=== PATIENT | female | born 1980 | race Caucasian/White ===

== ENCOUNTER 2018-11-23 09:57 | Day surgery (SDC) | payer BC ==
[2018-11-20 15:56] LABS: Absolute Lymphocytes (CBC) 1.5 K/uL (0.7-4.9); Basophils % 0.4 % (0-1.3); Eosinophils % 1.4 % (0-4.4); Hematocrit 41.7 % (36.0-45.0); Lymphocytes % 27.8 % (15.3-44.8); MPV 9.2 fL (7.6-11.3); Monocytes % 9.2 % (3.3-12.3); RBC Red Blood Cell Count 4.58 M/uL (3.86-4.86)
[2018-11-20 16:00] LABS: Urine Appearance CLEAR; Urine Bilirubin NEGATIVE (NEG); Urine Blood 1+ (NEG); Urine Color YELLOW; Urine Glucose NEGATIVE (NEG); Urine Protein NEGATIVE (NEG); Urine Specific Gravity <=1.005 (1.005-1.030); Urine Urobilinogen 0.2 mg/dL (0.2-1.0)
[2018-11-20 16:10] LABS: Urine Microscopic Reflex ORDER UMIC
[2018-11-20 16:29] LABS: Urine Bacteria <20 /HPF (<20); Urine Culture Reflex Order NOT NEEDED; Urine RBC NONE SEEN /HPF (NONE SEEN)
[2018-11-23 10:21] LABS: Specific Gravity > 1.030 (1.005-1.030)
[2018-11-23] MEDS ORDERED: Ringers Lactate 1,000 ML IV ONE ×3 (10:39→15:44)
[2018-11-23] MEDS ORDERED: SCOPOLAMINE HYDROBROMIDE PATCH TD ONE (10:39)
[2018-11-23] MEDS ORDERED: PROPOFOL 200 MG/20 ML VIAL IV ONE (12:39)
[2018-11-23] MEDS ORDERED: FENTANYL CITR 250 MCG/5 ML ONE (12:39)
[2018-11-23] MEDS ORDERED: MIDAZOLAM HCL 2 MG/2 ML INJ ONE (12:39)
[2018-11-23] MEDS ORDERED: ONDANSETRON 4 MG/2 ML VIAL ONE (12:39)
[2018-11-23] MEDS ORDERED: ROCURONIUM 50 MG/5 ML VIAL IV ONE (12:39)
[2018-11-23] MEDS ORDERED: LIDOCAINE 2% MPF 5 ML VIAL ONE (12:39)
[2018-11-23] MEDS ORDERED: dexAMETHasone 10 MG/ML VIAL ONE (12:39)
[2018-11-23] MEDS: CEFAZOLIN/SWI 2gm 2 GM/20 ML SYR ONE ×2 (12:56→13:05)
[2018-11-23] MEDS ORDERED: KETOROLAC 30 MG/ML INJ ONE (14:59)
[2018-11-23] MEDS ORDERED: GLYCOPYRROLATE 0.2 MG/ML SYR ONE (15:43)
[2018-11-23] MEDS ORDERED: NEOSTIGMINE 1 MG/ML -10 ML VIAL ONE (15:43)
[2018-11-23] MEDS: HYDROMORPHONE HCL 1 MG/ML INJ ONE ×2 (16:01→16:06)
[2018-11-23] MEDS ORDERED: PROMETHAZINE 25 MG/ML VIAL ONE (16:20)
[2018-11-23] MEDS ORDERED: HYDROCODONE/APAP 5/325 MG TAB ONE (17:39)
--- NOTE | 2018-11-24 08:21 | OP ---
Date of Procedure: 11/23/2018 Surgeon: Emilie Chew MD Lpn Per Diem: Nina Vicente. Preoperative Diagnoses: Recurrent heavy menstrual bleeding, leiomyomata/adenomyosis for endometriosi s, dysmenorrhea and dyspareunia. Postoperative Diagnoses: Recurrent heavy menstrual bleeding, leiomyomata/adenomyosis for endometrios is, dysmenorrhea and dyspareunia, endometriosis and lower uterine support at level 1, bilateral hydro salpinges, (postablation tubal ligation syndrome). Procedures Performed: Total laparoscopic hysterectomy, bilateral salpingectomy, uterosacral ligament suspension, colpopexy, endometriosis excision, and cystoscopy, glidewire placement on bot h sides. Estimated Blood Loss: Less than 50. Specimens: Uterus, bilateral tubes. Findings: Bilateral were noted most likely consistent with her ablation history, endometr iosis in the anterior cul-de-sac, which was excised and included with the serosal specimen of the [place] stormy. Then, level 1 defect noted and distal uterosacrals were both plicated together and attached to the posterior and anterior vaginal wall about 1 cm distal to the proximal end. Both ovaries appeared to be normal. Both distal part of the tube appeared to be normal and unremarka ble and there was scar tissue at the suprapubic area and near the bladder flap due to the prior C-sec tion. Patient is a 38-year-old referred to me by Dr. Figueroa after having . She was treated wi th an ablation and her bleeding has recurred as well as her pain, now she has severe dyspareunia and deep dyspareunia as well, becoming dysfunctional. All the other options including depo-medroxyproges terone acetate, Lupron, and GnRH antagonist therapy were all discussed with the patient. She decline d. She wanted to have surgical management and she was tired of the pain and was unable to continue t o have intercourse with her . She had no more fertility desires, so her tubes have been tied in the past. So after ultrasound was performed, no other abnormality was noted. She was biopsied prior to the abl ation. So, after reviewing her ultrasound plan to perform hysterectomy, bilateral salpingectomy, and any other procedures needed since there was caesarians. I would deal with the bladder if there are adhesions and cystoscopy as needed. Description Of Procedure: After informed consent was verified, patient was taken back to OR, placed in a supine fashion on the operating table. 2 g of Ancef were given prior to the procedure. The onl y allergy was penicillin anaphylaxis. After patient was placed in a supine fashion, general anesthesia was given, she was placed in a dorsa l lithotomy position using Bob stirrups. Pelvic exam performed, uterus anteflexed and slightly enl arged. No adnexal masses were seen. Abdomen, vulva, vagina, and perineum were prepped and draped in a sterile fashion. Barakat was placed to drain the bladder and VCare was introduced into the uterus a fter having to dilate the cervix up to 16-Gibraltarian and the VCare was inserted and fixed in place. Firs t retrograde filling bladder with Barakat was attached to the cysto-tubing to LR bag, emptied 300 from a 1000 for retrograde filling, this was just placed on the floor after draining the bladder to measur e the urinary output. 1 cm infraumbilical incision was made with a scalpel. Fascia incised and tagg ed with 0 Vicryl suture. Upper abdominal cavity, liver, gallbladder are unremarkable. There was sli ght adhesions of the ascending colon at the junction to the transverse colon in the right upper quadrant, but there were no other abnormality seen. Patient was placed in and then 10 mm suprapubic, 5 mm left lower quadrants were placed und er direct vision, then after visualizing all the courses of the ureters on both sides, which were und istorted the endometriosis in the anterior cul-de-sac, this was to be excised and the spec imen on the uterus. A 5 mm LigaSure was taken using laparoscopic scissors. Anterior bladder flap was raised all the way from 1 round ligament to the other. Hemostasis was secured as needed. Then, the mesosalpinx was ope juanjose up on the left side, after a window was made for the round ligament. This was taken down with th e LigaSure. Then, tube from the proximal part was all dissected so it could be included with the spe cimen. Then posterior flap was raised, but there was easy access all the way to the uterosacral liga ment on the left side. The broad ligament was skeletonized. Vessels were visualized on the opposite side, similar dissection was performed, taking down the uteroovarian ligament, mesosalpinx, tube, an d the proximal tube and the vessels were skeletonized in the usual fashion. Monopolar hook blade was used to create a nice bladder flap and bladder was dissected inferiorly at least 2 cm. Then, the Elizabeth Lo was used to take down the vessels on both sides and cardinal ligaments on both sides, circumfe rential colpotomy with a monopolar hook blade. Thorough irrigation and suction were performed. The vaginal closure was performed with 2 simple sutures at both ends and 3 xepqzbt-vo-fglrzi in the middl e and tied intracorporeally. Then the uterine became more obvious and at this point decid ed to perform an uterosacral suspension, which included taking the left uterosacral with a PDS at the distal 1/5 and attaching it to the posterior vaginal wall and passed the opposite contralateral to t he uterosacral and then to the anterior abdominal wall and this was tied down. There was excellent s upport at the apex and the plan was to do a cystoscopy. After thorough irrigation and suction were performed, the distal part of the tubes were also removed from the ovarian origin and they were handed off for permanent pathology. On removing the anterior c ul-de-sac, endometriosis cyst was excised sharply with scissors on the peritoneal side of the bladder and then the rest of it was excised and left with the specimen hanging. After the specimen was retrieved through the vagina thorough irrigation and suction were performed. Closure done with simple 0 Vicryl stitches on both sides and 3 hxsiaos-qj-tokywv in the middle for th e vaginal closure and then uterosacral suspension from distal left uterosacral, posterior vaginal wal l, right uterosacral anterior vaginal wall and then tied down together. Trocars were removed and gas was desufflated. Incisions at the umbilicus were closed with a 0 Vicryl in a mwhqox-ja-nfahu fashio n and a simple 0 Vicryl stitch at the suprapubic area. All skin incisions with 4 Vicryl interrupted sutures. Vaginally, I was able to remove the sponge stuck in glove for occluding the vagina out, the re was also a Barakat which had to be removed out. Once this was all done, the scope was placed ____ sheath, 30 degree lens, normal saline scope was placed into the bladder to visualize no evidence of any abnormalities. Both the ureteric orifices had gentle streams of urine, but the patient appea red to be dehydrated, her urine appeared to be concentrated. Passed the glidewire just to make sure there was no kink and there was no difficulty in passing it. The glidewire was pulled back and then the bladder was drained. Patient was recovered from anesthesia and instrument and sponge counts were correct at the end of the case. She tolerated the procedure well. She will follow up with me in 1 week. TEJAS Voice ID: [id number] Report ID: [id number]
== END 2018-11-23 18:10 | disposition home or self-care (01) ==
LOC: OR 09:57
PROVIDERS: ATTEND Obstetrics & Gynecology
PROC: 0UT74ZZ Resection of Bilateral Fallopian Tubes, Percutaneous Endoscopic Approach (ICD-10-PCS; 2018-11-23)
PROC: 0UBF4ZZ Excision of Cul-de-sac, Percutaneous Endoscopic Approach (ICD-10-PCS; 2018-11-23)
PROC: 0USG7ZZ Reposition Vagina, Via Natural or Artificial Opening (ICD-10-PCS; 2018-11-23)
PROC: 0UT94ZZ Resection of Uterus, Percutaneous Endoscopic Approach (ICD-10-PCS; principal; 2018-11-23 12:00)
DX: N72 Inflammatory disease of cervix uteri (principal); N83.6 Hematosalpinx; N70.11 Chronic salpingitis; N83.8 Other noninflammatory disorders of ovary, fallopian tube and broad ligament; N92.1 Excessive and frequent menstruation with irregular cycle; N94.6 Dysmenorrhea, unspecified; N94.12 Deep dyspareunia; N80.3 Endometriosis of pelvic peritoneum
CPT/HCPCS: 36415; 81003; 81015; 81025; 85025; 86850; 86900; 86901; 88307; J0690; J1100; J1170; J2250; J2405; J2550; J2704; J2710; J3010

== ENCOUNTER 2023-03-14 11:47 | Emergency (ER) | payer OTHER ==
--- OUTSIDE RECORDS SUMMARY | 2023-03-14 11:50 | XMS REPORT | Continuity of Care Document ---
:1980 Author Organization [facility] t Address [address] [place] [address] Care Team Providers Name Role Phone Bishnu PETERSON, Lillian Fiore Primary Care Physician [phone] SYLVIE_DONNA_Alfredo_Aydin Attending Clinician Unavailable LILLIAN SOLORIO Attending Clinician Unavailable Korey Fuentes Attending Clinician [phone] Vishal Connell DO Attending Clinician SYLVIE_DONNA_Alfredo_Aydin Admitting Clinician Unavailable Payers Payer Name Policy Type Policy Number Effective Date Expiration Date [facility] [id number] 2022 PLANS - OPEN 00:00:00 ACCESS 90 DEGREE BENEFITS [id number] 2022 00:00:00 AETNA-90 DEGREE 2 [id number] 2022 BENEFITS 00:00:00 [place] [id number] 2021 [place] (PPO) 00:00:00 Problems Condition Condition Condition Status Onset Resolution Last Treating Co mments Source Name Details Category Date Date Treatment Clinician Date Psoriasis Psoriasis Disease Active Checo sey 2-16 Seybold 00:00: - 00 Externa l Right Right Disease Active Eunice non-suppur non-suppur 2-16 Se ybold ative ative 00:00: - otitis otitis 00 Externa media media l Peggy' Peggy' Disease Active Matilde hutchisoncleo s disease s disease 2-16 Seyb old 00:00: - 00 Externa l Psoriasis Psoriasis Problem Active Shy via 30 Medical 00:00: 00 Allergies, Adverse Reactions, Alerts Allergy Allergy Status Severity Reaction(s) Onset Inactive Treating Comm ents Source Name Type Date Date Clinician Penicill Propensi Active Rash Eunice ins ty to 30 Seybold adverse 00:00: reaction 00 s Penicill Propensi Active Rash Eunice ins ty to 30 Seybold adverse 00:00: - reaction 00 Externa s l PENICILL Allergy Active Hives [facility] INS to Medical substanc e Social History Social Habit Start Date Stop Date Quantity Comments Source Exposure to Not sure Eunice Seybol d SARS-CoV-2 (event) Tobacco use and 2020-11-12 2020-11-12 Smokeless tobacco Ke lsey Seybold - exposure 00:00:00 00:00:00 non-user External Sex Ass[birth year] At [birth year] Eunice Se ybold - 00:00:00 00:00:00 External Smoking Status Start Date Stop Date Source Never smoked tobacco Eunice Seyb old - External Medications Ordered Filled Start Stop Current Ordering Indication Dosage Frequency Signature Comments Components Source Medication Medication Date Date Medication? Clinician (SIG) Name Name Levothyroxi 2021-05 Yes levothyrox Eunice ne Sodium 2-21 ine 25 mcg Seyb old 25 MCG oral 10:39: tablet - Tablet 55 TAKE 1 Externa TABLET BY l MOUTH EVERY DAY IN THE MORNING ON AN EMPTY STOMACH Metronidazo 2021-05 Yes metronidaz Eunice le 500 MG 2-21 ole 500 mg Seyb old oral Tablet 10:39: tablet - 55 TAKE 1 Externa TABLET BY l MOUTH THREE TIMES DAILY FOR 14 DAYS Saccharomyc 2021-05 Yes Florastor Matilde rosario es 2-21 250 mg Seybold boulardii 10:39: capsule - 250 MG oral 55 TAKE 1 Inside Meter Tester a Capsule CAPSULE BY l MOUTH DAILY Oseltamivir 2021-05- No [id number] 75mg Take 1 Eunice Phosphate 2-21 12-27 capsule Seybol d 75 MG oral 00:00: 05:59 (75 mg - Capsule 00 :00 total) by Externa mouth 2 l times daily for 5 days Ipratropium Yes 2{spray 2 sprays Eunice [place] 5-02 } Seybold 0.06 % 00:00: - nasal 00 Externa Solution l Azithromyci 2021- No [id number] Take 2 Eunice n 250 MG 2-16 -22 tablets by Seyb old oral Tablet 00:00: 05:59 mouth on 00 :00 day 1 then 1 tablet by mouth daily for 4 days thereafter . Omeprazole Yes TAKE 1 Kelse y 20 MG oral -31 CAPSULE BY Sey bold Delayed 00:00: MOUTH Release 00 EVERY Capsule MORNING IN THE MORNING Omeprazole 2021- No TAKE 1 Corinne ey 20 MG oral 06-08- CAPSULE BY Se ybold Delayed 00:00: 00:00 MOUTH - Release 00 :00 EVERY Externa Capsule MORNING IN l THE MORNING NALTREXONE Yes Eunice HCL OR 1-17 Seybold 00:00: 00 NALTREXONE Yes Eunice HCL OR 1-17 Seybold 00:00: - 00 Externa l ACADEMIC INTERVENTIONIST Thyroid ACADEMIC INTERVENTIONIST Thyroid No 1 Q1D ACADEMIC INTERVENTIONIST Thyroid [facility] 60 mg 60 mg 1-10 60 mg Medical tablet 1 tablet 1 00:00: tablet 1 tablet tablet 00 tablet every day every day every day by oral by oral by oral route. route. route. Thyroid (ACADEMIC INTERVENTIONIST Yes Eunice Thyroid) 60 1-10 Seybold MG oral 00:00: Tablet 00 Thyroid (ACADEMIC INTERVENTIONIST 0 Yes Eunice Thyroid) 60 1-10 Seybold MG oral 00:00: - Tablet 00 Externa l naltrexone naltrexone No naltrexone [facility] 1-01 Medical 00:00: 00 Famotidine 2020-05 Yes Eunice (PEPCID) 20 2-06 Seybold MG oral 00:00: tablet 00 Famotidine 2020-05- No Eunice (PEPCID) 20 2-06 12-21 Seybold MG oral 00:00: 00:00 - tablet 00 :00 Externa l Tremfya 100 Yes 1mg Inject 1 Ke lsey MG/ML 5-12 mg into Seybold subcutaneou 00:00: the skin s Solution 00 Q60 Days Prefilled Syringe Tremfya 100 Yes 1mg Inject 1 Ke lsey MG/ML 5-12 mg into Seybold subcutaneou 00:00: the skin - s Solution 00 Q60 Days Exter na Prefilled l Syringe azithromyci azithromyci No azithromyc [facility] n 250 mg n 250 mg in 250 mg Me dical tablet TAKE tablet TAKE tablet 2 TABLETS 2 TABLETS TAKE 2 BY MOUTH BY MOUTH TABLETS BY FOR 1 DAY FOR 1 DAY MOUTH FOR THEN TAKE 1 THEN TAKE 1 1 DAY THEN TABLET BY TABLET BY TAKE 1 MOUTH DAILY MOUTH DAILY TABLET BY FOR 4 DAYS FOR 4 DAYS MOUTH THEREAFTER THEREAFTER DAILY FOR 4 DAYS THEREAFTER famotidine famotidine No famotidine [facility] 20 mg 20 mg 20 mg Medical tablet TAKE tablet TAKE tablet 1 TABLET BY 1 TABLET BY TAKE 1 MOUTH EVERY MOUTH EVERY TABLET BY NIGHT AT NIGHT AT MOUTH BEDTIME BEDTIME EVERY NIGHT AT BEDTIME Florastor Florastor No Florastor [facility] 250 mg 250 mg 250 mg Medical capsule capsule capsule TAKE 1 TAKE 1 TAKE 1 CAPSULE BY CAPSULE BY CAPSULE BY MOUTH DAILY MOUTH DAILY MOUTH DAILY ipratropium ipratropium No ipratropiu [facility] bromide 42 bromide 42 m bromide Medical mcg (0.06 mcg (0.06 42 mcg %) nasal %) nasal (0.06 %) spray USE 2 spray USE 2 nasal SPRAYS IN SPRAYS IN spray USE EACH EACH 2 SPRAYS NOSTRIL NOSTRIL IN EACH THREE TIMES THREE TIMES NOSTRIL DAILY DAILY THREE NEEDED NEEDED TIMES DAILY NEEDED levothyroxi levothyroxi No levothyrox [facility] ne 25 mcg ne 25 mcg ine 25 mcg Medical tablet TAKE tablet TAKE tablet 1 TABLET BY 1 TABLET BY TAKE 1 MOUTH EVERY MOUTH EVERY TABLET BY DAY IN THE DAY IN THE MOUTH MORNING ON MORNING ON EVERY DAY AN EMPTY AN EMPTY IN THE STOMACH STOMACH MORNING ON AN EMPTY STOMACH metronidazo metronidazo No metronidaz [facility] le 500 mg le 500 mg ole 500 mg Medical tablet TAKE tablet TAKE tablet 1 TABLET BY 1 TABLET BY TAKE 1 MOUTH THREE MOUTH THREE TABLET BY TIMES DAILY TIMES DAILY MOUTH FOR 14 DAYS FOR 14 DAYS THREE TIMES DAILY FOR 14 DAYS multivitami multivitami No multivitam [facility] n n in Medical ACADEMIC INTERVENTIONIST Thyroid ACADEMIC INTERVENTIONIST Thyroid No ACADEMIC INTERVENTIONIST Thyroid [facility] 30 mg 30 mg 30 mg Medical tablet TAKE tablet TAKE tablet 2 TABLETS 2 TABLETS TAKE 2 BY MOUTH BY MOUTH TABLETS BY EVERY DAY EVERY DAY MOUTH ON AN EMPTY ON AN EMPTY EVERY DAY STOMACH STOMACH ON AN EMPTY STOMACH NuLev 0.125 NuLev 0.125 No NuLev [facility] mg mg 0.125 mg Medical disintegrat disintegrat disintegra ing tablet ing tablet ting DISSOLVE 1 DISSOLVE 1 tablet TO 2 TO 2 DISSOLVE 1 TABLETS ON TABLETS ON TO 2 THE TONGUE THE TONGUE TABLETS ON EVERY 4 TO EVERY 4 TO THE TONGUE 6 HOURS 6 HOURS EVERY 4 TO NEEDED NEEDED 6 HOURS NEEDED omeprazole omeprazole No omeprazole [facility] 20 mg 20 mg 20 mg Medical capsule,del capsule,del capsule,de ayed ayed layed release release release TAKE 1 TAKE 1 TAKE 1 CAPSULE BY CAPSULE BY CAPSULE BY MOUTH EVERY MOUTH EVERY MOUTH MORNING IN MORNING IN EVERY THE MORNING THE MORNING MORNING IN THE MORNING Tremfya 100 Tremfya 100 No Tremfya [facility] mg/mL mg/mL 100 mg/mL Medical subcutaneou subcutaneou subcutaneo s syringe s syringe us syringe Vital Signs Vital Name Observation Time Observation Value Comments Source Systolic blood 2022-04-28 16:36:00 98 mm[Hg] Eunice Natarajanold - pressure External Diastolic blood 2022-04-28 16:36:00 72 mm[Hg] Sherry Mckeon - pressure External Heart rate 2022-04-28 16:36:00 88 /min Eunice montero - External Body temperature 2022-04-28 16:36:00 36.28 Ju Corinne cervantes Seybold - External Respiratory rate 2022-04-28 16:36:00 14 /min Corinne Mckeon - External Body height 2022-04-28 16:36:00 167.6 cm Eunice montero - External Body weight 2022-04-28 16:36:00 71.668 kg Eunice montero - External BMI 2022-04-28 16:36:00 25.50 kg/m2 Eunice montero - External BP Diastolic 2021-11-18 00:00:00 77 mm[Hg] Carola Bertrand edical Height 2021-11-18 00:00:00 66 [in_i] Carola Bertrand edical BMI (Body Mass Index) 2021-11-18 00:00:00 24.9 kg/m2 [facility] BP Systolic 2021-11-18 00:00:00 111 mm[Hg] Carola del angel Body Weight 2021-11-18 00:00:00 154 [lb_av] Carola Bertrand edical Systolic blood 2021-06-24 16:45:00 110 mm[Hg] Eunice Seybold pressure Diastolic blood 2021-06-24 16:45:00 72 mm[Hg] Checose y Seybold pressure Heart rate 2021-06-24 16:45:00 85 /min Eunice cervantesbodelano Body temperature 2021-06-24 16:45:00 36.67 Ju Corinne ey Seybold Respiratory rate 2021-06-24 16:45:00 14 /min Corinne cervantes Seybold Body height 2021-06-24 16:45:00 167.6 cm Eunice cervantesbodelano Body weight 2021-06-24 16:45:00 73.483 kg Eunice cervantesbodelano BMI 2021-06-24 16:45:00 26.15 kg/m2 Eunice cervantesdean Procedures Procedure Date / Time Performed Performing Clinician Sour e LS RAPID STREP ASSAY-LAB 2022-04-28 16:56:00 Lillian Solorio Seybold - TEST Somogyi External LS RAPID FLU ASSAY-LAB 2022-04-28 16:56:00 Lillian Solorio Seybold - TEST Somogyi External MAMMO, screening, 2021-11-18 00:00:00 [facility] bilateral Hysterectomy 2018-05-09 00:00:00 [facility] Operative Procedure on [facility] dical Knee Caesarean Section [facility] Endometrial Ablation [facility] Plan of Care Planned Activity Planned Date Details Comments Source Diagnostic Test 2021-11-18 00:00:00 [place] IgE Ab P [facility] Pending [Units/volume] in Serum [code = 6195-2] Encounters Start End Encounter Admission Attending Care Care Encounter Source Date/Time Date/Time Type Type Clinicians Facility Department ID 2022-11-17 2022-11-17 Outpatient GC_SWHAOMC_ PRIV PRIV [id number] [facility] 00:00:00 00:00:00 Judy [id number] Medic al 2022-11-17 2022-11-17 Outpatient GC_SWHAOMC_ PRIV PRIV [id number] [facility] 00:00:00 00:00:00 Judy [id number] Medic al 2022-10-10 2022-10-10 Outpatient GC_SWMARCUSOMC_ PRIV PRIV [id number] [facility] 00:00:00 00:00:00 Judy [id number] Medic al 2022-04-28 2022-04-28 Outpatient EUNICE SOLORIO [id number] Eunice 10:30:00 10:30:00 LILLIAN Seybol d 2022-04-28 2022-04-28 Outpatient EUNICE SOLORIO [id number] Eunice 09:45:00 09:45:00 LILLIAN Seybol d 2021-11-18 2021-11-18 Outpatient GC_SWMARCUSOMC_ PRIV PRIV [id number] [facility] 01:14:00 01:14:00 Judy [id number] Medic al 2021-11-18 2021-11-18 Outpatient Alfredo, PRIV PRIV [id number] 00:00:00 00:00:00 Korey [id number] [place] [id number] 2021-11-18 2021-11-18 Korey [facility] 13 [facility] 00:00:00 00:00:00 [facility] Medic il SYLVIE Fuentes_DONNA_ : [address], [place] [address] , Ph. 2021-11-17 2021-11-17 Outpatient GC_MOHITOMC_ PRIV PRIV [id number] [facility] 12:43:00 12:43:00 Judy [id number] Medic al 2021-06-24 2021-06-24 Office Hoang Connell [id number] Eunice 11:00:00 11:30:00 Visit Vishal Gupta [id number] Se sesay [id number] Results Test Description Test Time Test Comments Results Result Sour e Comments SCR MAMM 2022-02-17 BILATERAL SKY 10:10:26 CAD DIGITAL Name: Cassandra DOB: 1980 Sex: F - SCR MAMM BILATERAL SKY CAD DIGITALBILATERAL DIGITAL SCREENING MAMMOGRAM 3D/2D WITH CAD: 02/15/2022LINICAL: Asymptomatic. Digital breast tomosynthesis was performed in addition to routine CC and MLO views. Current mammographic images were evaluated by [employer] ImageChecker CAD (computer-aided detection) software. Comparison is made to exams dated 02/09/2021 mammogram, 06/10/2017 mammogram, and 05/11/2016 mammogram - [facility]. The tissue of both breasts is heterogeneously dense. This may lower the sensitivity of mammography. There are benign calcifications in both breasts. No suspicious mass, architectural distortion, malignant type calcification, or lymph node abnormality detected. Breast architecture is stable compared to prior exams.IMPRESSION: BENIGNThere is no mammographic evidence of malignancy. Resume annual screening mammography in one year. (02/16/2023) Lillian Felix M.D. scmaite/penrad:02/17/2022 10:10:26 Attending Technologist: Stephanie Mario MM, RT(R)(M), [facility] Technologist: Bernadette Solis MM, [facility] Mammographyletter sent: BIRADS 1-2 Normal Mammogram BI-RADS: 2 Benign pap, LB + HR HPV 2020-11-05 00:00:00 Test Item Value Reference Range Interpretation Comme nts LMP date: (test code = LMP date:) 11/05/2020 Pap, liquid-based (test code = Pap, nilm nilm liquid-based) source (liquid-based cytology): (test cervical (which includes endo cervical) code = source (liquid-based cytology):) [facility]
[2023-03-14 12:29] LABS: Hematocrit 40.1 % (36.0-45.0); Lymphocytes % 9.4 % (15.3-44.8); MCV 91.3 fL (80-100); MPV 8.6 fL (7.6-11.3); Platelets 221 thou/uL (152-406)
[2023-03-14] MEDS ORDERED: ONDANSETRON 4 MG/2 ML VIAL ONE (12:44)
[2023-03-14] MEDS ORDERED: NA CHLORIDE 0.9% 1,000 ML ONE (12:44)
[2023-03-14] MEDS ORDERED: MORPHINE 4 MG/ML SYR ONE (12:44)
[2023-03-14 12:45] LABS: Albumin 4.4 g/dL (3.4-5.0); Bilirubin Total 0.5 mg/dL (0.2-1.0); Potassium 3.2 mEq/L (3.5-5.1); Protein, Total 8.4 g/dL (6.4-8.2)
[2023-03-14 13:11] LABS: Transitional Epithelial <5 /HPF (None Seen); Urine Bacteria <20 /HPF (<20); Urine Bilirubin NEGATIVE (Negative); Urine Blood Negative (Negative); Urine Clarity Extremely Turbid (Clear); Urine Color Yellow (Yellow); Urine Glucose NEGATIVE (Negative); Urine Protein NEGATIVE (Negative); Urine RBC <5 /HPF (None Seen); Urine Urobilinogen Normal (Normal); Urine pH 7.5 (5.0-7.0)
[2023-03-14 13:23] LABS: SARS-CoV-2 Antigen Rapid Res Negative (Negative)
[2023-03-14] MEDS ORDERED: FENTANYL CITR 100 MCG/2 ML ONE (13:56)
[2023-03-14] MEDS ORDERED: KETOROLAC 30 MG/ML INJ ONE (14:09)
--- NOTE | 2023-03-14 14:17 | RAD REPORT ---
EXAM DESCRIPTION: CT - Abdomen Pelvis W Contrast - 03/14/2023 1:19 pm CLINICAL HISTORY: ABD PAIN COMPARISON: No comparisons TECHNIQUE: Thin cut axial CT imaging of the abdomen and pelvis was performed following intravenous a dministration of 100 mL Isovue 300. Multiplanar reformats were generated and reviewed. All CT scans are performed using dose optimization technique as appropriate and may include automated exposure control or mA/KV adjustment according to patient size. FINDINGS: No suspicious findings in the lung bases. The liver, spleen, adrenal glands, and pancreas show no suspicious findings. Gallbladder and biliary tree are also without suspicious finding. Symmetric renal function is seen with no hydronephrosis or suspicious renal mass. No dilated bowel loops or bowel wall thickening. Fluid filling within nondistended small and large yovani wel loops with short-segment air-fluid levels. Multiple marginally enhancing left ovarian cystic lesi ons, largest measuring 3.2 cm. Mild free pelvic fluid. No free air, fluid collections, or inflammator y stranding. No hernia, mass or bulky lymphadenopathy. The urinary bladder is without significant fin ding. No suspicious bony findings. IMPRESSION: Some nonspecific fluid filling within nondistended small and large bowel loops, may rela te to enteritis or diarrheal state. No other acute findings. Left ovarian cystic lesions as above, with mild free pelvic fluid, favored to be physiologic.
--- NOTE | 2023-03-14 14:44 | EDPHYS ---
Physician Documentation [facility] Name: Lisa Oliva Age: 43 yrs Sex: Female : 1980 Arrival Date: 03/14/2023 Time: 11:47 Bed 19 Private MD: ED Physician Rg Chao HPI: 03/14 12:00 This 43 yrs old Female presents to ER via Wheelchair with complaints of Abdominal Pain. jh7 12:00 The patient presents with abdominal pain in the left upper quadrant, in the left lower jh7 quadrant. Onset: The symptoms/episode began/occurred this morning. The symptoms do not radiate. Associated signs and symptoms: Pertinent positives: nausea and vomiting, Pertinent negatives: diarrhea, fever. The symptoms are described as crampy, stabbing. Modifying factors: the symptoms are aggravated by food, movement. Historical: - Allergies: 12:40 PENICILLINS; kc6 ROS: 12:00 Constitutional: Negative for fever, chills, and weight loss, Eyes: Negative for injury, jh7 pain, redness, and discharge, Neck: Negative for injury, pain, and swelling, Cardiovascular: Negative for chest pain, palpitations, and edema, Respiratory: Negative for shortness of breath, cough, wheezing, and pleuritic chest pain, Back: Negative for injury and pain, MS/Extremity: Negative for injury and deformity, Skin: Negative for injury, rash, and discoloration, Neuro: Negative for headache, weakness, numbness, tingling, and seizure, 12:00 Abdomen/GI: Positive for abdominal pain, nausea and vomiting, Negative for diarrhea, constipation, rectal bleeding, 12:00 All other systems are negative, Exam: 12:00 Constitutional: This is a well developed, well nourished patient who is awake, alert, jh7 and in no acute distress. Head/Face: Normocephalic, atraumatic. Neck: Trachea midline, no thyromegaly or masses palpated, and no cervical lymphadenopathy. Supple, full range of motion without nuchal rigidity, or vertebral point tenderness. No Meningismus. Cardiovascular: Regular rate and rhythm with a normal S1 and S2. No gallops, murmurs, or rubs. Normal PMI, no JVD. No pulse deficits. Respiratory: Lungs have equal breath sounds bilaterally, clear to auscultation and percussion. No rales, rhonchi or wheezes noted. No increased work of breathing, no retractions or nasal flaring. Back: No spinal tenderness. No costovertebral tenderness. Full range of motion. Skin: Warm, dry with normal turgor. Normal color with no rashes, no lesions, and no evidence of cellulitis. MS/ Extremity: Pulses equal, no cyanosis. Neurovascular intact. Full, normal range of motion. Neuro: Awake and alert, GCS 15, oriented to person, place, time, and situation. Motor strength 5/5 in all extremities. Sensory grossly intact. Normal gait. 12:00 Abdomen/GI: Inspection: abdomen appears normal, Bowel sounds: normal, Palpation: soft, mild abdominal tenderness, in the left upper quadrant and left lower quadrant, Vital Signs: 12:00 BP 119 / 83; Pulse 75; Resp 16; Temp 98.9; Pulse Ox 100% on R/A; Weight 65.77 kg; iw Height 5 ft. 6 in. ; Pain 7/10; 12:00 Body Mass Index 23.40 (65.77 kg, 167.64 cm) iw 12:00 Pain Scale: Adult iw MDM: 11:54 Patient medically screened. [facility] 14:45 Differential diagnosis: cholecystitis, diverticulitis, gastritis, pancreatitis, [facility] Pyelonephritis, Gastroenteritis. Data reviewed: vital signs, nurses notes, lab test result(s), radiologic studies, CT scan. I considered the following discharge prescriptions or medication management in the emergency department Medications were administered in the Emergency Department. See MAR. Historians other than the Patient: Spouse/Significant Other: . Counseling: I had a detailed discussion with the patient and/or guardian regarding the historical points, exam findings, and any diagnostic results supporting the discharge/admit diagnosis, to return to the emergency department if symptoms worsen or persist or if there are any questions or concerns that arise at home. Response to treatment: the patient's symptoms have markedly improved after treatment. ED course: Patient passed p.o. challenge and was able to drink water and eat crackers without feeling nauseous or vomiting.. 03/14 12:03 Order name: CBC with Diff; Complete Time: 12:39 [facility] 03/14 12:03 Order name: CMP; Complete Time: 13:02 [facility] 03/14 12:03 Order name: Lipase; Complete Time: 13:02 [facility] 03/14 12:03 Order name: Test, Urine; Complete Time: 13:02 [facility] 03/14 12:03 Order name: Urinalysis w/ reflexes; Complete Time: 13:22 [facility] 03/14 12:03 Order name: SARS RAPID; Complete Time: 13:29 [facility] 03/14 12:03 Order name: Flu; Complete Time: 13:02 [facility] 03/14 13:02 Order name: CT Abd/Pelvis - IV Contrast Only; Complete Time: 14:22 [facility] 03/14 12:03 Order name: IV Saline Lock; Complete Time: 12:22 [facility] 03/14 12:03 Order name: Labs collected and sent; Complete Time: 12:22 [facility] 03/14 14:24 Order name: PO challenge; Complete Time: 14:38 [facility] Administered Medications: 12:37 Drug: NS 0.9% IV 1000 ml IV at 1 bolus Per protocol; 1000 mL bolus Route: IV; Rate: 1 kc6 bolus; Site: right antecubital; 12:37 Drug: Ondansetron IVP 4 mg IVP once; over 2 minutes Route: IVP; Site: right antecubital;kc6 12:37 Drug: morphine IVP or IV 4 mg IVP once over 4 mins Route: IVP; Infused Over: 4 mins; kc6 Site: right antecubital; 13:47 Not Given (Patient Refused): fentanyl (pf)50 mcg IVP once rs5 13:50 Drug: Ketorolac IVP 30 mg IVP once Route: IVP; Site: right antecubital; rs5 Disposition Summary: 03/14/23 14:43 Discharge Ordered Notes: Location: Home [facility] Problem: new [facility] Symptoms: have improved [facility] Condition: Stable [facility] Diagnosis - Noninfective gastroenteritis and colitis, unspecified [facility] Followup: [facility] - With: Private Physician - When: 2 - 3 days - Reason: Recheck today's complaints Discharge Instructions: - Discharge Summary Sheet [facility] - Viral Gastroenteritis, Adult [facility] Forms: - Medication Reconciliation Form [facility] - Thank You Letter [facility] - Patient Portal Instructions [facility] - Leadership Thank You Letter [facility] Prescriptions: - ondansetron 4 mg Oral Tablet,disintegrating - take 1 tablet ORAL route every 4 to 6 hours As needed; 20 tablet; Refills: 0, jh7 Product Selection Permitted - Levsin 0.125 mg Oral Tablet - take 1 tablet ORAL route every 8 hours; 30 tablet; Refills: 0, Product jh7 Selection Permitted Addendum: 03/19/2023 07:49 I was immediately available for consultation during this patient's visit. I did not e c2 personally see the patient or guide the patient's care.. Signatures: Dispatcher [employer] Linda Lancaster, HIEU CARDIAC MONITOR jh7 Gi Negrete RN RN kc6 Pardeep Reeves RN RN rs5 Rg Chao MD MD ec2
--- NOTE | 2023-03-14 14:44 | ER ---
Nurse's Notes [facility] Name: Lisa Oliva Age: 43 yrs Sex: Female : 1980 Arrival Date: 03/14/2023 Time: 11:47 Bed 19 Private MD: Diagnosis: Noninfective gastroenteritis and colitis, unspecified Presentation: 03/14 12:00 Chief complaint: Patient states: bad stomach pains this morning, vomited once. iw Coronavirus screen: At this time, the client does not indicate any symptoms associated with coronavirus-19. Ebola Screen: Patient negative for fever greater than or equal to 101.5 degrees Fahrenheit, and additional compatible Ebola Virus Disease symptoms Patient denies exposure to infectious person. Patient denies travel to an Ebola-affected area in the 21 days before illness onset. No symptoms or risks identified at this time. Initial Sepsis Screen: Does the patient meet any 2 criteria? No. Patient's initial sepsis screen is negative. Does the patient have a suspected source of infection? No. Patient's initial sepsis screen is negative. Risk Assessment: Do you want to hurt yourself or someone else? Patient reports no desire to harm self or others. Onset of symptoms was March 14, 2023. 12:00 Method Of Arrival: Wheelchair iw 12:00 Acuity: NORMA 3 iw Historical: - Allergies: 12:40 PENICILLINS; kc6 Assessment: 12:10 General: Appears in no apparent distress. uncomfortable. rs5 Vital Signs: 12:00 BP 119 / 83; Pulse 75; Resp 16; Temp 98.9; Pulse Ox 100% on R/A; Weight 65.77 kg; iw Height 5 ft. 6 in. ; Pain 7/10; 12:00 Body Mass Index 23.40 (65.77 kg, 167.64 cm) iw 12:00 Pain Scale: Adult iw ED Course: 11:49 Patient arrived in ED. mg5 11:54 [facility] jh7 11:54 Rg Chao MD is Attending Physician. jh7 12:01 Triage completed. iw 12:01 Arm band placed on. iw 12:22 Flu Sent. bc6 12:22 SARS RAPID Sent. bc6 12:22 CBC with Diff Sent. bc6 12:22 CMP Sent. bc6 12:22 Lipase Sent. bc6 12:22 Inserted saline lock: 20 gauge in right antecubital area, using aseptic technique. bc6 Blood collected. 12:35 Gi Negrete, RN is Primary Nurse. kc6 13:21 CT Abd/Pelvis - IV Contrast Only In Process Unspecified. EDMS Administered Medications: 12:37 Drug: NS 0.9% IV 1000 ml IV at 1 bolus Per protocol; 1000 mL bolus Route: IV; Rate: 1 kc6 bolus; Site: right antecubital; 12:37 Drug: Ondansetron IVP 4 mg IVP once; over 2 minutes Route: IVP; Site: right antecubital;kc6 12:37 Drug: morphine IVP or IV 4 mg IVP once over 4 mins Route: IVP; Infused Over: 4 mins; kc6 Site: right antecubital; 13:47 Not Given (Patient Refused): fentanyl (pf)50 mcg IVP once rs5 13:50 Drug: Ketorolac IVP 30 mg IVP once Route: IVP; Site: right antecubital; rs5 Outcome: 14:43 Discharge ordered by . Jovana 14:57 Patient left the ED. rs5 Signatures: Dispatcher [employer] EDMS Milagro Melendez RN RN iw Linda Jiang, MARKETING INTERN MARKETING INTERN 7 Gi Negrete RN RN kc6 Pardeep Reeves RN RN rs5 Dena Valiente 6 Cristal Swan mg5
[2023-03-14 15:06] VITALS: BP 119/83; TEMP 98.9; O2SAT 100
== END 2023-03-14 14:57 | disposition home or self-care (01) ==
LOC: ER 11:47
DX: K52.9 Noninfective gastroenteritis and colitis, unspecified (principal); Z11.52 Encounter for screening for COVID-19; Z88.0 Allergy status to penicillin
CPT/HCPCS: 85025; 81001; 36415; 81025; 83690; 80053; 87804 ×2; 74177; 96375; 96374; 99284; 87811; Q9967; J3010; J2405; J7030